=== PATIENT | male | born 1960 | race Caucasian/White ===

== ENCOUNTER 2018-06-30 23:39 | Inpatient (IN) | payer MEDICAID ==
[~2018-06-30] VITALS: Ht 175.3 cm; Wt 63.1 kg
[2018-06-30] MEDS ORDERED: ondansetron/PF 4mg/2ml inj IV ONE (23:55)
[2018-06-30] MEDS ORDERED: morphine 4 MG/ML inj SYRINge IV PRN (23:55)
[2018-06-30] MEDS ORDERED: normal saline 1000ML IV soln IVB ONE (23:55)
[2018-07-01 00:21] LABS: BASOPHILS % (AUTO) 0.2 % (0-1); EOSINOPHILS # (AUTO) 0.5 X10'3 (0-0.9); EOSINOPHILS % (AUTO) 2.4 % (0-6); HEMATOCRIT 39.8 % (42.0-52.0); HEMOGLOBIN 13.3 g/dl (14.0-17.9); LYMPHOCYTES # (AUTO) 1.9 X10'3 (1.1-4.8); LYMPHOCYTES % (AUTO) 10.1 % (21-51); MEAN CORPUSCULAR HEMOGLOBIN 32.1 PG (27.0-31.0); MEAN CORPUSCULAR HGB CONC 33.4 % (33.0-36.5); MEAN CORPUSCULAR VOLUME 96.2 FL (78-98); MEAN PLATELET VOLUME 7.2 FL (7.4-10.4); MONOCYTES # (AUTO) 0.9 X10'3 (0-0.9); MONOCYTES % (AUTO) 4.9 % (2-12); NEUTROPHILS # (AUTO) 15.6 X10'3 (1.8-7.7); NEUTROPHILS % (AUTO) 82.4 % (42-75); PLATELET COUNT 254 X10'3 (140-440); RED BLOOD COUNT 4.13 X10'6 (4.70-6.10); RED CELL DISTRIBUTION WIDTH 13.4 % (11.5-14.5)
[2018-07-01 00:32] LABS: ALANINE AMINOTRANSFERASE 57 U/L (12-78); ALBUMIN/GLOBULIN RATIO 1.1 (1.1-1.5); ALKALINE PHOSPHATASE 112 IU/L (46-116); ANION GAP 7 (8-16); ASPARTATE AMINO TRANSFERASE 44 U/L (10-37); BILIRUBIN,TOTAL 0.4 MG/DL (0.1-1.0); BLOOD UREA NITROGEN 15 MG/DL (7-18); BUN/CREATININE RATIO 9.6 (5.4-32.0); CALCIUM 9.3 MG/DL (8.5-10.1); CHLORIDE 99 MMOL/L (99-107); CREATININE 1.57 MG/DL (0.60-1.10); GLUCOSE 153 MG/DL (70-104); LIPASE 65 U/L (73-393); POTASSIUM 3.7 MMOL/L (3.5-5.1); SODIUM 139 MMOL/L (135-145); TOTAL CARBON DIOXIDE 33.4 MMOL/L (24-32); TOTAL PROTEIN 7.6 G/DL (6.4-8.2); eGFR 46 ML/MIN
[2018-07-01] MEDS ORDERED: normal saline 1000ML IV soln IV ONE (01:10)
[2018-07-01] MEDS ORDERED: piperacillin/tazo 3.375gm/50ml 50 ML IV ONE (01:10)
[2018-07-01] MEDS ORDERED: HYDR-4353 PO (01:26)
[2018-07-01] MEDS ORDERED: AMIT-189 PO (01:26)
[2018-07-01] MEDS ORDERED: BUPR150T8 PO (01:26)
[2018-07-01] MEDS ORDERED: ZOLP10TA5 PO (01:26)
[2018-07-01] MEDS ORDERED: CITA-311 PO (01:26)
[2018-07-01 01:31] LABS: CLARITY,URINE CLEAR (Clear); COLOR,URINE YELLOW (Yellow); GLUCOSE, URINE NEGATIVE (Neg); KETONES,URINE TRACE mg/dl (Neg); LEUKOCYTE ESTERASE ,URINE NEGATIVE (Neg); NITRITES, URINE NEGATIVE (Neg); OCCULT BLOOD,URINE TRACE-INTACT (Neg); PH,URINE 6.5 (4.8-8.0); PROTEIN,URINE TRACE mg/dl (Neg); UROBILINOGEN,URINE 0.2 E.U/dL (0.2-1.0)
[2018-07-01] MEDS ORDERED: CITA20TA19 PO (01:32)
[2018-07-01] MEDS ORDERED: LISI-642 PO (01:32)
[2018-07-01] MEDS ORDERED: ALBU18HF2 INH (01:32)
[2018-07-01] MEDS ORDERED: GABA600T2 PO (01:32)
[2018-07-01 01:36] LABS: UA COLLECTION TYPE CLN CATCH MIDSTREAM
[2018-07-01 01:38] LABS: WBC,URINE 0-4 /HPF (0-4)
[2018-07-01 01:39] LABS: BACTERIA,URINE FEW /HPF (Neg); HYALINE CASTS >30 /LPF (NEGATIVE); MUCUS STRANDS FEW /LPF (Neg); SQUAMOUS EPITHELIAL CELL,UR FEW /LPF (FEW); TRANSITIONAL EPI CELLS,URINE FEW /HPF
[2018-07-01] MEDS ORDERED: zolpidem 5mg tablet PO PRN (02:00)
[2018-07-01] MEDS ORDERED: metoclopramide 5 mg/ml inj IV PRN (02:05)
[2018-07-01] MEDS ORDERED: acetaminophen 325mg tablet PO PRN ×2 (02:05)
[2018-07-01] MEDS ORDERED: bisacodyl 10mg suppository rectal RC PRN (02:05)
[2018-07-01] MEDS ORDERED: magnesium hydroxide 30ml (MOM) UD suspension PO PRN (02:05)
[2018-07-01] MEDS ORDERED: acetaminophen 650mg rectal suppository RC PRN (02:05)
[2018-07-01] MEDS ORDERED: morphine 2 MG/ML inj. syringe IV PRN (02:05)
[2018-07-01] MEDS ORDERED: ondansetron/PF 4mg/2ml inj IV PRN (02:05)
[2018-07-01] MEDS ORDERED: diphenhydrAMINE 50 mg/ml inj IV PRN (02:05)
[2018-07-01] MEDS ORDERED: HYDROcodone/acetaminophen 10/325mg tab PO PRN (02:05)
[2018-07-01] MEDS ORDERED: albuterol 2.5 MG/3 ML nebule NEB PRN (02:05)
[2018-07-01] MEDS ORDERED: mag hydrox/Alum hydrox/simeth 30ml oral suspension PO PRN (02:05)
[2018-07-01] MEDS ORDERED: diphenhydrAMINE 25mg capsule PO PRN (02:05)
[2018-07-01] MEDS: normal saline 1000ml 1,000 ML IV SCH ×3 (02:30→16:35)
[2018-07-01] MEDS: HYDROmorphone 1 mg/ml syringe IV PRN ×2 (02:35→15:22)
[2018-07-01] MEDS ORDERED: nicotine 21mg patch - 24 hr TD ONE (02:35)
[2018-07-01 02:49] LABS: HEMOGLOBIN A1C 5.6 % (4.5-6.2)
[2018-07-01 03:10] VITALS: BP 123/79
[2018-07-01 03:40] LABS: MAGNESIUM 2.3 MG/DL (1.5-2.4); PHOSPHORUS 3.4 MG/DL (2.3-4.5); TROPONIN I < 0.04 NG/ML (0.0-0.05)
[2018-07-01] MEDS: docusate sod 100mg capsule PO SCH ×2 (08:00→23:38)
[2018-07-01] MEDS: pantoprazole 40 MG vial IV SCH (08:31)
[2018-07-01] MEDS: piperacillin/tazo 4.5gm/100ml 100 ML IV SCH ×3 (08:34→23:44)
[2018-07-01 09:44] VITALS: BP 101/63
[2018-07-01 09:51] LABS: BASOPHILS % (AUTO) 0.4 % (0-1); EOSINOPHILS # (AUTO) 0.2 X10'3 (0-0.9); EOSINOPHILS % (AUTO) 3.2 % (0-6); HEMATOCRIT 31.5 % (42.0-52.0); HEMOGLOBIN 10.5 g/dl (14.0-17.9); LYMPHOCYTES # (AUTO) 1.5 X10'3 (1.1-4.8); LYMPHOCYTES % (AUTO) 19.6 % (21-51); MEAN CORPUSCULAR HEMOGLOBIN 32.3 PG (27.0-31.0); MEAN CORPUSCULAR HGB CONC 33.4 % (33.0-36.5); MEAN CORPUSCULAR VOLUME 96.5 FL (78-98); MEAN PLATELET VOLUME 7.2 FL (7.4-10.4); MONOCYTES # (AUTO) 0.4 X10'3 (0-0.9); MONOCYTES % (AUTO) 5.5 % (2-12); NEUTROPHILS # (AUTO) 5.4 X10'3 (1.8-7.7); NEUTROPHILS % (AUTO) 71.3 % (42-75); PLATELET COUNT 170 X10'3 (140-440); RED BLOOD COUNT 3.27 X10'6 (4.70-6.10); RED CELL DISTRIBUTION WIDTH 13.9 % (11.5-14.5); WHITE BLOOD COUNT 7.6 X10'3 (4.5-11.0)
[2018-07-01 09:56] LABS: ALANINE AMINOTRANSFERASE 36 U/L (12-78); ALBUMIN 2.6 G/DL (3.4-5.0); ALKALINE PHOSPHATASE 85 IU/L (46-116); ANION GAP 1 (8-16); ASPARTATE AMINO TRANSFERASE 29 U/L (10-37); BILIRUBIN,TOTAL 0.3 MG/DL (0.1-1.0); BLOOD UREA NITROGEN 14 MG/DL (7-18); BUN/CREATININE RATIO 12.6 (5.4-32.0); CALCIUM 7.4 MG/DL (8.5-10.1); CHLORIDE 108 MMOL/L (99-107); CREATININE 1.11 MG/DL (0.60-1.10); GLUCOSE 78 MG/DL (70-104); POTASSIUM 4.2 MMOL/L (3.5-5.1); SODIUM 140 MMOL/L (135-145); TOTAL CARBON DIOXIDE 31.4 MMOL/L (24-32); TOTAL PROTEIN 5.3 G/DL (6.4-8.2); eGFR 68 ML/MIN
[2018-07-01 12:50] VITALS: BP 122/75
[2018-07-01] MEDS: diatr meglu/diatrizoate 30ml oral sol.-(3 dose) bottle PO PRN ×3 (13:12→17:41)
[2018-07-01] MEDS ORDERED: diatr meglu/diatrizoate 30ml oral sol.-(3 dose) bottle PO SCH (15:00)
[2018-07-01] MEDS ORDERED: iohexol 300mg/ml 100ml inj. ONE (17:34)
[2018-07-01 20:00] VITALS: BP 132/83
[2018-07-01] MEDS ORDERED: buPROPion SR 150mg tablet PO SCH (21:00)
[2018-07-01] MEDS ORDERED: gabapentin 300mg capsule PO SCH (21:00)
[2018-07-01] MEDS ORDERED: citalopram 20mg tablet PO SCH (21:00)
[2018-07-01] MEDS ORDERED: temazepam 15mg capsule PO PRN (21:00)
[2018-07-01] MEDS ORDERED: amitryptiline 50mg tablet PO SCH (21:00)
[2018-07-01] MEDS ORDERED: lisinopril 5mg tablet PO SCH (21:00)
[2018-07-01 23:00] VITALS: BP 131/86
[2018-07-02] MEDS: normal saline 1000ml 1,000 ML IV SCH (04:37)
[2018-07-02 04:50] LABS: BASOPHILS % (AUTO) 0.3 % (0-1); EOSINOPHILS # (AUTO) 0.3 X10'3 (0-0.9); EOSINOPHILS % (AUTO) 4.7 % (0-6); LYMPHOCYTES # (AUTO) 1.7 X10'3 (1.1-4.8); LYMPHOCYTES % (AUTO) 25.3 % (21-51); MEAN CORPUSCULAR HEMOGLOBIN 31.9 PG (27.0-31.0); MEAN CORPUSCULAR HGB CONC 33.3 % (33.0-36.5); MEAN CORPUSCULAR VOLUME 95.8 FL (78-98); MEAN PLATELET VOLUME 7.4 FL (7.4-10.4); MONOCYTES # (AUTO) 0.4 X10'3 (0-0.9); MONOCYTES % (AUTO) 6.4 % (2-12); NEUTROPHILS # (AUTO) 4.3 X10'3 (1.8-7.7); NEUTROPHILS % (AUTO) 63.3 % (42-75); PLATELET COUNT 172 X10'3 (140-440); RED BLOOD COUNT 3.45 X10'6 (4.70-6.10); RED CELL DISTRIBUTION WIDTH 13.7 % (11.5-14.5); WHITE BLOOD COUNT 6.7 X10'3 (4.5-11.0)
[2018-07-02 05:15] LABS: ALANINE AMINOTRANSFERASE 31 U/L (12-78); ALBUMIN 2.4 G/DL (3.4-5.0); ALBUMIN/GLOBULIN RATIO 0.9 (1.1-1.5); ALKALINE PHOSPHATASE 72 IU/L (46-116); ANION GAP 5 (8-16); ASPARTATE AMINO TRANSFERASE 22 U/L (10-37); BILIRUBIN,TOTAL 0.5 MG/DL (0.1-1.0); BLOOD UREA NITROGEN 11 MG/DL (7-18); BUN/CREATININE RATIO 11.2 (5.4-32.0); CALCIUM 7.9 MG/DL (8.5-10.1); CHLORIDE 109 MMOL/L (99-107); CHOL/HDL RATIO 3.1 (0.00-4.99); CHOLESTEROL 123 MG/DL (0-200); CREATININE 0.98 MG/DL (0.60-1.10); GLUCOSE 78 MG/DL (70-104); HDL CHOLESTEROL 40 MG/DL (35-60); LDL CHOLESTEROL 70 MG/DL (50-100); POTASSIUM 3.6 MMOL/L (3.5-5.1); SODIUM 144 MMOL/L (135-145); TOTAL CARBON DIOXIDE 29.9 MMOL/L (24-32); TOTAL PROTEIN 5.2 G/DL (6.4-8.2); TRIGLYCERIDES 88 MG/DL (20-135); eGFR 79 ML/MIN
[2018-07-02 08:03] VITALS: BP 134/81
[2018-07-02] MEDS: pantoprazole 40 MG vial IV SCH (09:28)
[2018-07-02] MEDS: docusate sod 100mg capsule PO SCH (09:29)
[2018-07-02] MEDS: piperacillin/tazo 4.5gm/100ml 100 ML IV SCH (09:29)
[2018-07-02 11:47] VITALS: BP 137/83
== END 2018-07-02 13:00 | disposition home or self-care (01) | DRG 247 ==
LOC: ER 23:40 → ED HOLD 07-01 02:02 → SUR 3N 07-01 03:11
PROVIDERS: ADMIT Family Medicine; ATTEND Family Medicine
PROC: 0D9670Z Drainage of Stomach with Drainage Device, Via Natural or Artificial Opening (ICD-10-PCS; principal; 2018-07-01)
PROC: CF141ZZ Planar Nuclear Medicine Imaging of Gallbladder using Technetium 99m (Tc-99m) (ICD-10-PCS; 2018-07-01)
PROC: BW211ZZ Computerized Tomography (CT Scan) of Abdomen and Pelvis using Low Osmolar Contrast (ICD-10-PCS; 2018-07-01)
DX: K56.2 Volvulus (principal); N17.9 Acute kidney failure, unspecified; D64.9 Anemia, unspecified; F17.200 Nicotine dependence, unspecified, uncomplicated; E86.0 Dehydration; D72.829 Elevated white blood cell count, unspecified; G89.4 Chronic pain syndrome; K56.7 Ileus, unspecified; I10 Essential (primary) hypertension; F32.9 Major depressive disorder, single episode, unspecified; R22.2 Localized swelling, mass and lump, trunk; Z79.891 Long term (current) use of opiate analgesic; Z79.899 Other long term (current) drug therapy
CPT/HCPCS: 36415; 71045; 74176; 74177; 74181; 78227; 80053; 80061; 81001; 83036; 83605; 83690; 83735; 83880; 84100; 84145; 84484; 85025; 87040; 87070; 94760; 96365; 96375; 99285; A9537; C9113; G0378; J1170; J2270; J2405; J2543; J7030; Q9963; Q9967

== ENCOUNTER 2019-02-18 10:08 | Outpatient (CLI) | payer MEDICAID ==
[~2019-02-18 10:08] MED LIST: ALBU18HF2 INH; AMIT-189 PO; BUPR150T8 PO; CITA20TA19 PO; GABA600T13 PO; HYDR-4353 PO; LISI-642 PO; ZOLP10TA5 PO
[2019-02-18] MEDS ORDERED: albuterol 2.5 MG/3 ML nebule ONE (10:58)
[2019-02-18] MEDS ORDERED: albuterol 2.5 MG/3 ML nebule NEB ONE (11:05)
== END 2019-02-18 23:59 | disposition home or self-care (01) ==
LOC: RT 10:08
PROVIDERS: ATTEND Student in an Organized Health Care Education/Training Program
DX: J98.4 Other disorders of lung (principal); F17.210 Nicotine dependence, cigarettes, uncomplicated; Z79.899 Other long term (current) drug therapy
CPT/HCPCS: 94060; 94760

== ENCOUNTER 2024-02-27 15:35 | Outpatient (CLI) | payer MEDICAID ==
[~2024-02-27 15:35] MED LIST changes: -AMIT-189 PO; +AMIT50TA15 PO
== END 2024-02-27 23:59 | disposition home or self-care (01) ==
LOC: MRI 15:35
PROVIDERS: ATTEND Nurse Practitioner
DX: M51.17 Intervertebral disc disorders with radiculopathy, lumbosacral region (principal); M47.897 Other spondylosis, lumbosacral region; M48.07 Spinal stenosis, lumbosacral region; M54.59 Other low back pain
CPT/HCPCS: 72148

== ENCOUNTER 2024-10-07 20:21 | Emergency (ER) | payer MEDICAID ==
[~2024-10-07] VITALS: Ht 175.3 cm; Wt 59.1 kg
[~2024-10-07 20:21] MED LIST changes: +GABA-1405 PO; -GABA600T13 PO
[2024-10-07 20:31] VITALS: BP 100/78; PULSE 92; RESP 23; TEMP 98.2; O2SAT 97
[2024-10-07 21:02] LABS: BASOPHILS # (AUTO) 0.1 X10'3 (0-0.2); BASOPHILS % (AUTO) 0.9 % (0-1); EOSINOPHILS # (AUTO) 0.2 X10'3 (0-0.9); EOSINOPHILS % (AUTO) 4.2 % (0-6); HEMATOCRIT 38.2 % (42.0-52.0); LYMPHOCYTES # (AUTO) 0.8 X10'3 (1.1-4.8); MEAN CORPUSCULAR HEMOGLOBIN 33.1 PG (27.0-31.0); MEAN CORPUSCULAR HGB CONC 34.1 g/dL (33.0-36.5); MEAN PLATELET VOLUME 6.6 FL (7.4-10.4); MONOCYTES # (AUTO) 0.8 X10'3 (0-0.9); MONOCYTES % (AUTO) 13.1 % (2-12); NEUTROPHILS # (AUTO) 4.1 X10'3 (1.8-7.7); NEUTROPHILS % (AUTO) 68.8 % (42-75); PLATELET COUNT 189 X10'3 (140-440); RED BLOOD COUNT 3.94 X10'6 (4.70-6.10); RED CELL DISTRIBUTION WIDTH 13.9 % (11.5-14.5); WHITE BLOOD COUNT 5.9 X10'3 (4.5-11.0)
[2024-10-07 21:17] LABS: ALANINE AMINOTRANSFERASE 24 U/L (12-78); ALBUMIN/GLOBULIN RATIO 0.9 (1.1-1.5); ALKALINE PHOSPHATASE 89 IU/L (46-116); ANION GAP 4 (8-16); ASPARTATE AMINO TRANSFERASE 23 U/L (10-37); BILIRUBIN,TOTAL 0.3 MG/DL (0.1-1.0); BLOOD UREA NITROGEN 11 MG/DL (7-18); BUN/CREATININE RATIO 10.7 (10.0-20.0); CALCIUM 8.2 MG/DL (8.5-10.1); CHLORIDE 103 MMOL/L (99-107); CREATININE 1.03 MG/DL (0.60-1.10); GLUCOSE 128 MG/DL (70-104); LIPASE 42 U/L (16-77); POTASSIUM 4.1 MMOL/L (3.5-5.1); SODIUM 139 MMOL/L (135-145); TOTAL CARBON DIOXIDE 31.8 MMOL/L (24-32); TOTAL PROTEIN 6.4 G/DL (6.4-8.2); eCRCL 61 ML/MIN; eGFR 73 ML/MIN
== END 2024-10-07 22:40 | disposition left against medical advice (07) ==
LOC: ER 20:21
DX: R06.02 Shortness of breath (principal); M54.2 Cervicalgia; R10.84 Generalized abdominal pain; F41.9 Anxiety disorder, unspecified
CPT/HCPCS: 36415; 80053; 83690; 85025; 93005